=== PATIENT | male | born 1935 | race Caucasian/White ===

== ENCOUNTER 2020-08-02 18:54 | Emergency (ER) | payer MEDICARE, SELFPAY ==
--- NOTE | ~2020-08-02 | CT_ITS ---
EXAMINATION: CT brain wo con DATE: 08/02/2020 20:00 INDICATION: Head injury. TECHNIQUE: Computed tomography (CT) of the head was performed without intravenous contrast. The mA wa s adjusted according to patient size. Iterative reconstruction technique was employed. The dose-lengt h product was 605.33 mGy-cm. COMPARISON: None FINDINGS: There is old lacunar infarct in right basal ganglia. There are scattered areas of low atten uation in the cerebral white matter. There is an old infarct in left frontal lobe. There is no intrac ranial hemorrhage, acute infarction, or abnormal intracranial mass lesion. The ventricles are normal in size. There is mild mucosal thickening in the ethmoid sinuses. The orbits are normal. The mastoid air cells are normal. There is right superior scalp soft tissue swelling. IMPRESSION: 1. 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 2. Extensive nonspecific cerebral white matter disease, which likely represents chronic small vessel ischemic disease. Reviewed, dictated and finalized at location A.
--- NOTE | ~2020-08-02 | XR_ITS ---
EXAMINATION: XR hip LT 2V w AP pelvis DATE: 08/02/2020 19:53 INDICATION: Left hip pain. TECHNIQUE: An anteroposterior view pelvis and 2 views of left hip were obtained. COMPARISON: None. FINDINGS: Bone alignment is normal. No fracture. There is mild osteoarthritis of the hips. There is m oderate lumbar spondylosis. Surgical clips overlie left hip. IMPRESSION: 1. Mild osteoarthritis of the hips. Reviewed, dictated and finalized at location A.
[2020-08-02 19:26] VITALS: BP 140/74; PULSE 71; RESP 18; TEMP 36.6; O2SAT 96
[2020-08-02 21:16] VITALS: BP 182/85; PULSE 78; RESP 18; O2SAT 99
--- NOTE | 2020-08-02 21:29 | ED.FALL ---
HPI - Fall General Chief Complaint: Extremity Injury, Lower Stated Complaint: Fall Head Injury, L Hip Pain Time Seen by Provider: 08/02/20 21:09 Source: patient and RN notes reviewed Mode of arrival: ambulatory Limitations: no limitations History of Present Illness HPI Narrative: This is an 85 year old male with history carotid artery disease on plavix who presents for evaluation of head injury and left hip pain. He states was getting up from a lawn chair when the chair tipped over to the right. He hit his head on his 's boat but denies LOC. He denies dizziness, headache, chest pain, abdominal pain, neck pain or back pain. He does complain of left hip worse with movement. He has been able to walk and bear weight. He has a laceration to his head. He is unsure of his last tetanus. Related Data Allergies Allergy/AdvReac Type Severity Reaction Status Date / Time No Known Drug Allergies Allergy Verified 09/26/12 10:58 Review of Systems Review of Systems: All systems reviewed & are unremarkable except as noted in HPI and below Constitutional: Constitutional: Denies chills and Denies fever(s) Cardiovascular: Cardiovascular: Denies chest pain Respiratory: Respiratory: Denies cough and Denies dyspnea Gastrointestinal: Gastrointestinal: Denies abdominal pain, Denies diarrhea, Denies nausea and Denies vomiting Musculoskeletal: Musculoskeletal: Denies back pain and Reports arthralgias (left hip ) [facility] Past Medical History Medical History (Updated 08/03/20 @ 00:00 by Ginger Chilel) Asthma Hyperlipidemia Hypertension Surgical History Surgical History (Updated 08/02/20 @ 21:32 by Goldie Sylvester MD) H/O knee surgery Social History Social History (Updated 08/02/20 @ 21:32 by Goldie Sylvester MD) Smoking status: Never smoker Exam Const: General: no acute distress and alert Orientation/consciousness: patient oriented x3 HENMT: Head: normocephalic and laceration (right parietal irregular flap laceration 3 cm) Face and sinus: face symmetric Mouth: Yes Normal oral and palatal mucosa present, Yes lip normal, Yes oropharynx normal and Yes moist mucous membranes Eyes: EOM: EOMs intact bilaterally Chest: Chest palpation & inspection: normal inspection of the chest and no tenderness Resp: Effort & Inspection: normal respiratory effort and no retractions Auscultation: clear to auscultation bilaterally Cardio: Rate: regular rate Rhythm: regular rhythm Heart sounds: no murmurs GI: GI Palp: Yes Soft to palpation, No Tenderness to palpation present (GI) and No Guarding due to palpation present (GI) Auscultation: normal bowel sounds Neuro: General: patient oriented x3, moves all extremities and CN's II-XI intact bilaterally Extrem: General: normal to inspection Psych: Mental Status: mental status grossly normal Affect: normal affect Course Reevaluation(s) Reevaluation #1: Patient is able to walk and bear weight without difficulty. I discussed xray was negative for fracture. CT brain no acute. I repaired his scalp laceration Date: 08/02/20 Time: 22:49 Vital Signs Vital signs: Vital Signs Temperature 97.8 F 08/02/20 19:26 Pulse Rate 71 08/02/20 19:26 Respiratory Rate 18 08/02/20 19:26 Blood Pressure 140/74 08/02/20 19:26 Pulse Oximetry 96 08/02/20 19:26 Temperature 97.8 F 08/02/20 19:26 Pulse Rate 78 08/02/20 21:16 Respiratory Rate 18 08/02/20 21:16 Blood Pressure 182/85 H 08/02/20 21:16 Pulse Oximetry 99 08/02/20 21:16 Procedures Laceration Laceration 1: Date: 08/02/20 Time: 22:50 Site: scalp Side (If applicable): right (parietal) Size (cm): 3 Description: flap Depth: simple, single layer Local Anesthetic: lidocaine 1% and with epi Amount of anesthesia used (mL): 2 Pre-repair: irrigated ====== Skin Level ====== Skin layer closed with: day Number of s
[2020-08-02] MEDS: TETANUS,DIPHTHERIA,AC PERTUSSIS ADULT (0.5 ML) BOOSTRIX IM (21:42)
== END 2020-08-02 23:02 | disposition home or self-care (01) ==
PROVIDERS: Emergency Provider General Practice
DX: S01.01XA Laceration without foreign body of scalp, initial encounter (principal); M25.552 Pain in left hip; Z23 Encounter for immunization; I25.10 Atherosclerotic heart disease of native coronary artery without angina pectoris; E78.5 Hyperlipidemia, unspecified; J45.909 Unspecified asthma, uncomplicated; I10 Essential (primary) hypertension; Z79.02 Long term (current) use of antithrombotics/antiplatelets; M16.0 Bilateral primary osteoarthritis of hip; R90.82 White matter disease, unspecified; W07.XXXA Fall from chair, initial encounter
CPT/HCPCS: 12002; 70450; 73502; 90471; 90715; 99284

== ENCOUNTER 2022-04-26 11:27 | Emergency (ER) | payer MEDICARE, SELFPAY ==
[2022-04-26] VITALS (13 sets, daily range): BP systolic 69–128; BP diastolic 43–78; PULSE 83–108; RESP 16–20; TEMP 37; O2SAT 93–99
--- NOTE | ~2022-04-26 | XR_ITS ---
XR chest 1V portable 04/26/2022 12:27 Indication: Syncope. Bloody nose. Procedure: AP portable chest Comparison: No prior studies for comparison. Findings: There are ill-defined nodular densities in both lungs and along the right pleural surface s uperiorly, suspicious for metastatic disease. Heart size normal. No pleural effusion or pneumothorax. Impression: 1: Ill-defined nodular densities bilaterally, suspicious for metastatic disease. Recommend correlatio n with CT. Reviewed, dictated and finalized at location A. RE FITTER Impression: 1: Ill-defined nodular densities bilaterally, suspicious for metastatic disease . Recommend correlation with CT.
--- NOTE | 2022-04-26 12:14 | ECG_ITS ---
Measurements Intervals Clune Rate: 86 P: 13 ND: 152 QRS: 5 QRSD: 162 T: 179 QT: 433 QTc: 519 Interpretive Statements SINUS RHYTHM LEFT BUNDLE BRANCH BLOCK BASELINE ARTIFACT- I, III, AVR, AVL, AVF ABNORMAL ECG NO PREVIOUS ECG AVAILABLE FOR COMPARISON Electronically Signed On 04-26-2022 15:25:34 [employer] MACHINE OPERATOR by Bishop Burt D.O.
--- NOTE | 2022-04-26 12:23 | ED.GENADULT ---
HPI - General Adult General Chief complaint: Epistaxis Stated complaint: Nosebleed Time Seen by Provider: 04/26/22 12:02 Source: RN notes reviewed History of Present Illness HPI narrative: Patient presents emergency department from home via EMS for epistaxis. Patient states has had bleeding out of his left nare since approximately 8:30 AM. States he is on Plavix and aspirin at home. Patient states that he was using the restroom when the bleeding began he denies any direct trauma or injury. Per the family the patient continue to have bleeding that increased prior to arrival and EMS was called the patient did have a syncopal episode per the family with the bleeding patient has a history of previous stroke and OH as well as previous renal failure and has been off of dialysis now for approximately 2 months he denies any fevers or chills denies any chest pain shortness of breath or any other symptoms Related Data Allergies Allergy/AdvReac Type Severity Reaction Status Date / Time meperidine [From Demerol] Allergy Anxiety Verified 04/26/22 16:29 Review of Systems Review of Systems: Gen.: Denies fevers or chills Eyes: Denies eye pain or visual change ENT: See HPI Respiratory: Denies shortness of breath or cough CV: Reports syncope GI: Denies abdominal pain nausea, emesis or diarrhea Musculoskeletal: Denies back pain or muscle pain Neuro: Denies numbness, tingling, weakness or focal weakness Skin: Denies rash Except as documented, all other systems reviewed and negative [facility] Past Medical History Medical History Asthma Hyperlipidemia Hypertension Surgical History Surgical History (Updated 08/02/20 @ 21:32 by Goldie Sylvester MD) H/O knee surgery Social History Social History Smoking status: Never smoker Exam Narrative: APPEARANCE: No acute distress, nontoxic, resting in bed EYES: EOMI HEENT: Normocephalic, atraumatic, nasal clamp on when clamp was removed active bleeding out of the left nare no bleeding of the right nare no blood seen in posterior pharynx RESPIRATORY: No respiratory distress Clear to auscultation bilaterally with no rhonchi wheezing or rales. CARDIOVASCULAR: Regular rate and rhythm without murmurs rubs or gallops. ABDOMINAL: Soft, nontender, nondistended, no rebound or guarding MUSCULOSKELETAl: Moves all extremities. No clubbing, cyanosis or edema. NEURO: Awake and alert. Following commands, speech normal, no focal deficits SKIN:: Warm, dry. No rashes lesions or abrasions PSYCHIATRIC: Normal affect/mood, Course Course Emergency Course: Patient with no further bleeding following placement of rapid Rhino Discussed with patient and family they do request transfer to [facility] at this time ENT is available at our facility as well at this time will transfer Discussed with Dr. Mcallister at [facility] agrees with transfer we will discuss patient's x-ray and need for CT of the chest wall obtained at [facility] Discussed with patient family in agreement with transfer I did discuss that he will need CT of the chest and they are in agreement Vital Signs Vital signs: Vital Signs Temperature 98.6 F 04/26/22 11:03 Pulse Rate 98 04/26/22 11:03 Respiratory Rate 19 04/26/22 11:03 Blood Pressure 106/67 04/26/22 11:03 Pulse Oximetry 96 04/26/22 11:03 Oxygen Delivery Room Air 04/26/22 11:03 Temperature 98.6 F 04/26/22 11:03 Pulse Rate 99 04/26/22 15:45 Respiratory Rate 18 04/26/22 15:45 Blood Pressure 128/78 04/26/22 15:45 Pulse Oximetry 97 04/26/22 15:45 Oxygen Delivery Room Air 04/26/22 11:03 Procedures Epistaxis Control left: Nose Prepped With: phenylephrine Device Inserted: nasal tampon (5.5 rapid Rhino) Patient Tolerated Procedure: well Epistaxis Control Narrative: Line placement rapid Rhino no further bleeding
[2022-04-26] MEDS: SODIUM CHLORIDE 0.9% IV 1,000 ML 999 ML IV CONT (12:29)
[2022-04-26 12:32] LABS: Basophils Absolute Auto 0.1 K/mm3 (0.0-0.1); Eosinophils Absolute Auto 0.2 K/mm3 (0-0.3); Eosinophils Percent Auto 2.3 % (0-4.4); Hematocrit 34.9 % (42.0-52.0); Hemoglobin 11.5 g/dL (14.0-18.0); Immature Granulocyte Absolute 0.03 K/mm3 (0.00-0.031); Immature Granulocyte Percent A 0.3 % (0-0.5); Lymphocytes Percent Auto 12.5 % (18.3-44.2); Mean Corpuscular Hemoglobin 31.5 pg (26-34); Mean Corpuscular Volume 95.6 fl (80-100); Monocytes Absolute Auto 0.7 K/mm3 (0.1-0.6); Monocytes Percent Auto 6.2 % (2.6-8.5); Neutrophils Absolute Auto 8.1 K/mm3 (1.3-6.7); Neutrophils Percent Auto 77.7 % (45.5-73.1); Platelet Count Result 306 k/mm3 (150-375); Red Blood Count 3.65 M/mm3 (4.6-6.20); Red Cell Distribution Width 13.1 % (11.5-14.5); White Blood Count 10.4 K/mm3 (4.5-10.0)
[2022-04-26 12:43] LABS: Alanine Aminotransferase 23 U/L (6-50); Albumin Level 3.7 g/dL (3.5-5.1); Alkaline Phosphatase 58 U/L (38-126); Anion Gap 13 mmol/L (8-16); Aspartate Amino Transferase 27 U/L (17-59); Bilirubin,Total 0.6 mg/dL (0.2-1.3); Blood Urea Nitrogen 78 mg/dL (9-20); Calcium 8.3 mg/dL (8.4-10.2); Carbon Dioxide 25 mmol/L (22-30); Chloride 98 mmol/L (98-107); Estimated CRCL calculation 10 ml/min; Estimated Glomerular Filt Rate 13; Glucose 215 mg/dL (65-110); Potassium 3.4 mmol/L (3.4-5.0); Sodium 136 mmol/L (137-145)
[2022-04-26 12:52] LABS: INR 1.1
[2022-04-26 12:53] LABS: Partial Thromboplastin Time 27.1 SECONDS (22.3-36.8)
[2022-04-26 12:57] LABS: Troponin I 0.041 ng/mL (0.000-0.034)
[2022-04-26 13:49] LABS: Influenza A QL RT-PCR Negative (Negative); Influenza B QL RT-PCR Negative (Negative); SARS-CoV-2 RNA PCR Negative
--- NOTE | 2022-04-26 16:05 | PC.NURSE ---
[facility] declined transfer to [facility] accepted eta [id number]
[2022-04-26] MEDS: CEPHALEXIN 500 MG CAPSULE PO (16:30)
[2022-04-26 16:44] LABS: Hematocrit 35.2 % (42.0-52.0); Hemoglobin 11.8 g/dL (14.0-18.0)
[2022-04-26 17:13] LABS: Troponin I 0.066 ng/mL (0.000-0.034)
== END 2022-04-26 17:29 | disposition short-term general hospital (02) ==
PROVIDERS: Emergency Provider Emergency Medicine
DX: R04.0 Epistaxis (principal); Z20.822 Contact with and (suspected) exposure to COVID-19; J45.909 Unspecified asthma, uncomplicated; E78.5 Hyperlipidemia, unspecified; I10 Essential (primary) hypertension; Z79.82 Long term (current) use of aspirin; Z79.02 Long term (current) use of antithrombotics/antiplatelets
CPT/HCPCS: 30901; 36415; 71045; 80053; 84484; 85014; 85018; 85025; 85610; 85730; 86850; 86900; 86901; 87636; 93005; 96360; 99285; A9270; J7030

== ENCOUNTER 2022-05-14 10:25 | Emergency (ER) | payer MEDICARE, SELFPAY ==
[2022-05-14 10:34] VITALS: BP 145/91; PULSE 103; RESP 18; TEMP 36.8; O2SAT 100
[2022-05-14] MEDS: OXYMETAZOLINE HCL 0.05% NAS 15 ML BTL (*BKC) 1 SPRAY NASAL (10:54)
--- NOTE | 2022-05-14 11:03 | ED.GENADULT ---
HPI - General Adult General Chief complaint: Epistaxis Stated complaint: Nosebleed Time Seen by Provider: 05/14/22 10:30 History of Present Illness HPI narrative: Patient presents to the emergency department by EMS for evaluation of epistaxis that started just prior to arrival. Patient does take Plavix and aspirin. Patient was treated at [facility] for a nosebleed last week and had cauterization. Patient does have history of kidney failure and anemia and was scheduled to have a blood transfusion by his recreation therapist at [facility]. Related Data Home Medications Medication Instructions Recorded Confirmed atorvastatin 40 mg tablet mg 05/14/22 clopidogrel 75 mg tablet mg 05/14/22 furosemide 40 mg tablet mg 05/14/22 metoprolol succinate 50 mg capsule 50 mg PO DAILY 05/14/22 05/14/22 sprinkle, ext. release 24 hr potassium chloride 10 mEq meq PO 05/14/22 tablet,extended release sertraline 50 mg tablet mg 05/14/22 Allergies Allergy/AdvReac Type Severity Reaction Status Date / Time meperidine [From Demerol] Allergy Anxiety Verified 05/14/22 10:51 Review of Systems Review of Systems: CONSTITUTIONAL: Denies fever, chills, or sweats. EYES: Denies visual changes, redness, or discharge. ENT: See HPI CARDIOVASCULAR: Denies chest pain, palpitations, or edema. RESPIRATORY: Denies cough or dyspnea. GASTROINTESTINAL: Denies abdominal pain, nausea, vomiting, or diarrhea. GENITOURINARY: Denies dysuria or hematuria. SKIN: Denies rash or itching. MUSCULOSKELETAL: Denies back pain, joint pain, or myalgia. NEUROLOGIC: Denies headache, numbness, or weakness. PMFSH Past Medical History Medical History Asthma Hyperlipidemia Hypertension Surgical History Surgical History (Updated 08/02/20 @ 21:32 by Goldie Sylvester MD) H/O knee surgery Social History Social History Smoking status: Never smoker Exam Narrative: APPEARANCE: Well appearing, no pain, no distress, well-nourished. HEAD: normocephalic, atraumatic. EYES: PERRLA/EOMI, conjunctivae clear. NOSE: Bleeding from left nare EARS:TMS clear with good light reflex. THROAT: Pharynx clear, no exudate. NECK: Supple. No adenopathy, no masses. RESPIRATORY: Airway patent, respirations nonlabored. Clear to auscultation bilaterally, no rales, rhonchi, wheezing. CARDIOVASCULAR: Regular rate and rhythm without murmurs rubs or gallops. ABDOMINAL: Soft, nontender, nondistended, normal bowel sounds MUSCULOSKELETAL: Moves all extremities. Strength/ROM intact, No edema, No calf tenderness. NEURO: Alert. Cranial nerves II through XII intact. SKIN: Warm, dry. Normal Color Course Course Emergency Course: Patient has significant bleeding from the left nare upon arrival to the emergency department. Attempted nasal packing with Afrin soaked gauze and this offered no hemostasis. A 7.5 Rhino Rocket was placed in the left nare and this did achieve hemostasis. Patient does have some clot visualized in the posterior pharynx but does not appear to have significant bleeding. Patient is spitting up some blood-tinged saliva but this is greatly reduced. I discussed case with Dr. Puri and he was willing to admit the patient and take the patient to the OR if the patient did not have hemostasis from the Rhino Rocket Patient typically gets admitted at [facility] and was admitted at [facility] for his most recent nosebleed. Patient initially did feel too weak to be discharged to home and family is preferring transfer to [facility]. [facility] hospitalist was paged for the admission. Family states that the patient's hemoglobin on last check was 8.5, hemoglobin was 8.9 Patient was offered admission and they preferred to be transferred. I discussed the case with the charge nurse at [facility] and I was waiting to speak to the hospitalist. The patient's daughter and called and
[2022-05-14 11:07] LABS: Basophils Absolute Auto 0.1 K/mm3 (0.0-0.1); Basophils Percent Auto 1.1 % (0.2-1.2); Eosinophils Absolute Auto 0.3 K/mm3 (0-0.3); Eosinophils Percent Auto 5.1 % (0-4.4); Hematocrit 28.7 % (42.0-52.0); Hemoglobin 8.9 g/dL (14.0-18.0); Immature Granulocyte Absolute 0.03 K/mm3 (0.00-0.031); Immature Granulocyte Percent A 0.5 % (0-0.5); Lymphocytes Percent Auto 10.9 % (18.3-44.2); Mean Corpuscular Hemoglobin 31.7 pg (26-34); Mean Corpuscular Volume 102.1 fl (80-100); Mean Platelet Volume 8.1 fl (7.4-10.4); Monocytes Absolute Auto 0.5 K/mm3 (0.1-0.6); Monocytes Percent Auto 8.3 % (2.6-8.5); Neutrophils Absolute Auto 4.8 K/mm3 (1.3-6.7); Neutrophils Percent Auto 74.1 % (45.5-73.1); Platelet Count Result 340 k/mm3 (150-375); Red Blood Count 2.81 M/mm3 (4.6-6.20); Red Cell Distribution Width 15.4 % (11.5-14.5); White Blood Count 6.4 K/mm3 (4.5-10.0)
[2022-05-14 11:18] LABS: Alanine Aminotransferase 20 U/L (6-50); Albumin Level 3.8 g/dL (3.5-5.1); Alkaline Phosphatase 62 U/L (38-126); Anion Gap 7 mmol/L (8-16); Aspartate Amino Transferase 24 U/L (17-59); Bilirubin,Total 0.5 mg/dL (0.2-1.3); Blood Urea Nitrogen 55 mg/dL (9-20); Calcium 8.6 mg/dL (8.4-10.2); Carbon Dioxide 20 mmol/L (22-30); Chloride 115 mmol/L (98-107); Estimated CRCL calculation 12 ml/min; Estimated Glomerular Filt Rate 15; Glucose 115 mg/dL (65-110); INR 1.1; Partial Thromboplastin Time 31.8 SECONDS (22.3-36.8); Potassium 4.7 mmol/L (3.4-5.0); Prothrombin Time 13.9 Seconds (11.1-14.7); Sodium 142 mmol/L (137-145)
== END 2022-05-14 14:34 | disposition home or self-care (01) ==
PROVIDERS: Emergency Provider Emergency Medicine
DX: J45.909 Unspecified asthma, uncomplicated (principal); E78.5 Hyperlipidemia, unspecified; I10 Essential (primary) hypertension; D64.9 Anemia, unspecified; N19 Unspecified kidney failure; Z79.82 Long term (current) use of aspirin; Z79.02 Long term (current) use of antithrombotics/antiplatelets
CPT/HCPCS: 30901; 36415; 80053; 85025; 85610; 85730; 99283; A9270